=== PATIENT | female | born 1935 | race Caucasian/White ===

== ENCOUNTER 2018-04-09 10:58 | Inpatient (IN) | payer OTHER, BC ==
[2018-04-09] VITALS (9 sets, daily range): BP systolic 98–176; BP diastolic 28–72
[~2018-04-09] VITALS: Ht 170.2 cm; Wt 38.1 kg
--- NOTE | ~2018-04-09 | EKG ---
[address] [place] [address] ELECTROCARDIOGRAM REPORT Name: MEGHAN GOVEA Room #: 170-1 ADM IN M.R.#: [id number] Admission: 04/09/18 Attend Phys: Roxana Andrade Discharge: Date of : 31 Report #: [id number] THIS REPORT FOR: //name// [facility] ED Test Date: 2018-04-09 Test Time: 12:09:55 Pat Name: MEGHAN GOVEA Department: Room: 170 Gender: F [employer] Developer: MZOOK : 1935 Requested By: Josselyn Quiroz Order Number: [id number] MD: Naveen Keenan Measurements Intervals [place] Rate: 60 P: 83 [place]: 166 QRS: 65 QRSD: 88 T: 77 QT: 439 QTc: 439 Interpretive Statements Sinus rhythm Normal tracing No previous ECG available for comparison Electronically Signed On 04-09-2018 13:14:14 CDT by Naveen Keenan [email or web address] <ELECTRONICALLY SIGNED> By: Naveen Keenan MD, [facility] 04/09/18 1314 1209 1209 Naveen Keenan MD, FACC /EPI
--- NOTE | ~2018-04-09 | P ---
[facility] [address] PROCEDURE REPORT Name: MEGHAN GOVEA Room #: 423-1 ADM IN M.R.#: [id number] Admission: 04/09/18 Attend Phys: Roxana Andrade Discharge: Date of : 31 Report #: [id number] THIS REPORT FOR: //name// CC: ARNOLDO Andrade MD Physician staff DATE OF SERVICE: 04/10/2018 PROCEDURE PERFORMED: Upper endoscopy. HISTORY OF PRESENT ILLNESS: The patient is an 82-year-old female who presented with a dark stool mixed with bright red blood. She is on aspirin and Plavix. Admit hemoglobin 6. She has been transfused with 2 units of packed cells. Her hemoglobin now in the 9 range. We had a long discussion regarding observing with PPI therapy versus upper endoscopy. 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 Plan is for upper endoscopy. DESCRIPTION OF PROCEDURE: The risks and benefits of the procedure were explained to the patient and those risks including but not limited to bleeding, perforation and the risk of sedation. She understood these risks and gave informed consent. Sedation was given using propofol per anesthesia. Next, using a standard Olympus upper endoscope, the scope was placed in the patient's mouth and advanced under direct vision through the esophagus, stomach and into the second portion of the duodenum. The larynx was normal in appearance. The esophagus was normal throughout. The GE junction was normal. Upon entering the stomach, a large hiatal hernia was noted. There was a single gastric nonbleeding AVM approximately 3-4 mm in size. I did not cauterize this as the patient has been on aspirin and Plavix recently, but again there were no signs of bleeding. There was a single clean white based ulcer in the gastric antrum. The pylorus was normal and patent. There was a moderate duodenitis in the duodenal bulb and the first and second portion of the duodenum were normal. There was no evidence of bleeding in the duodenum. The scope at this point was then withdrawn and the procedure terminated. The patient tolerated the procedure well. IMPRESSION: 1. Large hiatal hernia. 2. 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 No stigmata of bleeding at this time, unable to cauterize due to aspirin and Plavix. 3. Gastric antral ulcer. No stigmata of bleeding. 4. Duodenitis. RECOMMENDATIONS: [facility] [address] [place] [address] PROCEDURE REPORT Name: TAPANNYLAZANAMEGHAN Room #: 423-1 ADM IN M.R.#: [id number] Admission: 04/09/18 Attend Phys: Roxana Andrade Discharge: Date of : 31 Report #: [id number] 1. Continue to hold anticoagulation therapy. 2. Continue PPI therapy. 3. Continue to monitor hemoglobin closely. 4. If signs of recurrent bleeding, consider a flexible sigmoidoscopy or colonoscopy in the near future. Thank you for allowing me to participate in her care. By: 1141 0027 Pa Turk, /neelam
--- NOTE | ~2018-04-09 | HC ---
[facility] [place] [address] CONSULTATION Name: MEGHAN GOVEA Room #: 423-1 ADM IN M.R.#: [id number] Admission: 04/09/18 Attend Phys: Roxana Andrade Discharge: Date of : 31 Report #: [id number] THIS REPORT FOR: //name// CC: ARNOLDO Andrade MD Physician staff DATE OF SERVICE: 04/10/2018 HISTORY OF PRESENT ILLNESS: The patient is an 82-year-old female who is visiting from [place] at this time, began feeling weak in general as well as some shortness of breath. She does have a history of COPD, is O2 dependent, typically on 1-2 liters, was using 3 liters yesterday, [place] She then had an episode of dark stool with some bright red blood. No previous history of GI bleed. She takes aspirin and Plavix on a daily basis for a history of aortic aneurysm with a previous stent placed and this was years ago. She denies any abdominal pain. She was hospitalized in December, apparently in [place] for abdominal pain. A CT scan of the abdomen and pelvis was performed. Her daughter states that they told her it was negative. There is no obvious history of diverticulosis. The patient's last colonoscopy was greater than 20 years ago. There is no family history of colon cancer. She has not had another episode of bleeding since admission. Her hemoglobin on admission was 6.2. She received 2 units of packed cells and her hemoglobin today is 9.9. She denies any dysphagia. She denies any significant heartburn symptoms. Her weight has been stable, although she typically runs in the 80-90 range. She does report some constipation at times. She denies any significant diarrhea recently. She also has a history of chronic renal insufficiency. Her creatinine is 1.4 here. PAST MEDICAL HISTORY: COPD, O2 dependent; history of aortic aneurysm, status post stent placement, but apparently has an aneurysm in a different location; previous bowel obstruction surgery x 2, which she does not know the specifics of cataract surgery; previous appendectomy; chronic renal insufficiency. ALLERGIES: To TYLENOL, FLEXERIL, HYDROCODONE, IBUPROFEN, LEVAQUIN and PENICILLIN. REVIEW OF SYSTEMS: As per HPI. MEDICATIONS: On admission: ProAir, aspirin 325 mg a day, Plavix, Lopressor, thyroid, Mevacor, alprazolam and fluticasone inhaler. FAMILY HISTORY: Negative for colon cancer. SOCIAL HISTORY: She denies any tobacco use. She reports occasional alcohol [address] [address] CONSULTATION Name: MEGHAN GOVEA Room #: [address] [place] [address] IN M.R.#: [id number] Admission: 04/09/18 Attend Phys: Roxana Andrade Discharge: Date of : 31 Report #: [id number]. PHYSICAL EXAMINATION: VITAL SIGNS: Temperature is 98.4, pulse 82, blood pressure is 135/63 and respiratory rate is 16. GENERAL: She is alert and oriented x 3, in no acute distress. HEENT: Sclerae nonicteric. Oropharynx clear. NECK: Supple, without lymphadenopathy. CARDIOVASCULAR: Regular rate and rhythm. CHEST: With decreased breath sounds bilaterally. ABDOMEN: Soft. She is nontender and nondistended. Normoactive bowel sounds. EXTREMITIES: No cyanosis, clubbing or edema. LABORATORY DATA: Sodium 141, potassium 4.7, chloride 107, bicarbonate 28, BUN 36, creatinine 1.4 and glucose 124. AST is 24, total bilirubin 0.3, alkaline phosphatase 120, ALT is 15, total protein 5.7 and albumin 3.1. Troponin less than 0.06. Iron 28%, sat 8. INR 1.2. WBC 6.0, hemoglobin 9.9 after 2 units of packed cells and platelet count is 110. RADIOLOGICAL DATA: The patient had a CT scan of the abdomen and pelvis on admission, possible mild generalized ileus versus nonspecific gastroenteritis or possible combination of both. Trace amount of free fluid in the pelvis in Herman's pouch, marked right renal atrophy, abdominal aortic stent graft in place with a 4.2 cm abdominal aortic aneurysm. Chest x-ray, chronic appearing lung changes, no definite acute cardiopulmonary process identified. ASSESSMENT AND PLAN: Anemia, gastrointestinal bleed. I had a long discussion with the patient and her daughter today regarding her symptoms, her medications. The patient describes both dark stools as well as bright red blood. I explained this is difficult to determine if this is an upper gastrointestinal bleed versus lower gastrointestinal bleed. The patient is taking aspirin and Plavix, which obviously increases the risk for peptic ulcer disease. She may have had a lower gastrointestinal bleed such as a diverticular bleed, but she is not reporting passing large amounts of blood and clots, which is typically seen. She has not had another bowel movement today. I explained to the patient we could simply observe at this time off her anticoagulation therapy and continue proton pump inhibitor therapy assuming this may be an ulcer bleed and continue to monitor hemoglobin and watch her clinically versus potentially proceeding with an upper endoscopy today. I explained the risks and benefits of doing the procedure, especially anesthesia in her situation with her pulmonary disease. After a long discussion, the patient would like to proceed with an upper endoscopy for further evaluation. I will make further recommendations after upper endoscopy. We did discuss possible flexible sigmoidoscopy; however, she is an unprepped patient and if upper endoscopy is negative, then likely source is a lower bleed and she is having no further bleeding at this time. [facility] [address] [place] [address] CONSULTATION Name: ANTONIO GOVEARICIA Room #: 423-1 ADM IN M.R.#: [id number] Admission: 04/09/18 Attend Phys: Roxana Andrade Discharge: Date of : 31 Report #: [id number] Thank you for allowing me to participate in her care. By: 1138 2236 Pa Turk MD /nt
[2018-04-09] MEDS ORDERED: PROAIR HFA8.5 GM INH (11:40)
[2018-04-09] MEDS ORDERED: ASPIRIN325 PO (11:41)
[2018-04-09] MEDS ORDERED: PLAVIX 75 MG TA75 M1 PO (11:41)
[2018-04-09] MEDS ORDERED: LOPRESSOR50 PO (11:42)
[2018-04-09] MEDS ORDERED: LOVASTATIN 20 M20 MG PO (11:44)
[2018-04-09] MEDS ORDERED: ARMOUR THYROID30 M1 PO (11:44)
[2018-04-09] MEDS ORDERED: ALPRAZOLAM 0.0.25 M1 PO (11:46)
[2018-04-09] MEDS ORDERED: BREO ELLIPTA 11 EACH INH (11:46)
[2018-04-09 11:53] LABS: ABSOLUTE NEUTROPHILS 7.3 thou/uL (1.4-8.2); ANION GAP 6 mmol/L (7-16); BASOPHILS 0.7 % (0.0-2.0); BUN 36 mg/dL (7-18); CALCIUM 8.6 mg/dL (8.5-10.1); CHLORIDE 107 mmol/L (98-107); CO2 28 mmol/L (21-32); CREATININE 1.4 mg/dL (0.6-1.0); GLUCOSE 124 mg/dL (74-106); LYMPHOCYTES 9.1 % (24.0-44.0); MCH 31.7 pg (26.0-34.0); MCHC 33.7 g/dL (28.0-37.0); MCV 94.2 fL (80.0-100.0); MONOCYTES 7.3 % (1.0-8.0); PLATELET COUNT 135 thou/uL (150-400); POLYS 80.9 % (36.0-66.0); POTASSIUM 4.7 mmol/L (3.5-5.1); RBC 1.95 mil/uL (4.20-5.00); RDW 15.1 % (10.5-14.5); SODIUM 141 mmol/L (136-145)
[2018-04-09 11:55] LABS: HEMATOCRIT 18.3 % (37.0-47.0); HEMOGLOBIN 6.2 gm/dL (12.0-15.0)
[2018-04-09 12:01] LABS: ALBUMIN 3.1 g/dL (3.4-5.0); SGOT 24 U/L (15-37); SGPT 15 U/L (30-65); TOTAL BILIRUBIN 0.3 mg/dL (<0.1-1.0); TOTAL PROTEIN 5.7 g/dL (6.4-8.2); TROPONIN-I <0.06 ng/mL (<0.06)
[2018-04-09 12:07] LABS: BE(vivo) 0.3 mmol/L (-2 to +3); HCO3 24.3 mmol/L (22.0-26.0); PO2 115.1 mmHg (80.0-100.0); pH 7.448 (7.360-7.450); sO2 98.4 % (92.0-98.0)
[2018-04-09 12:23] LABS: APTT 22.5 Seconds (24.5-32.8); INR 1.1; PROTIME 10.9 Seconds (9.3-11.4)
[2018-04-09 13:09] LABS: % SATURATION 8 % (20-39); IRON 28 ug/dL (50-170); TIBC 352 ug/dL (250-450)
[2018-04-10 05:09] LABS: HEMATOCRIT 28.7 % (37.0-47.0); HEMOGLOBIN 9.9 gm/dL (12.0-15.0); MCH 32.2 pg (26.0-34.0); MCHC 34.6 g/dL (28.0-37.0); RBC 3.08 mil/uL (4.20-5.00); RDW 14.2 % (10.5-14.5)
[2018-04-10 09:29] VITALS: BP 135/63
[2018-04-10 11:20] VITALS: BP 135/63
[2018-04-10 18:08] VITALS: BP 146/48
[2018-04-10 19:51] VITALS: BP 123/45
[2018-04-11 04:43] VITALS: BP 145/41
[2018-04-11 05:31] LABS: HEMATOCRIT 28.1 % (37.0-47.0); HEMOGLOBIN 9.4 gm/dL (12.0-15.0); MCH 31.7 pg (26.0-34.0); MCHC 33.6 g/dL (28.0-37.0); MCV 94.2 fL (80.0-100.0); RBC 2.98 mil/uL (4.20-5.00)
[2018-04-11 08:27] VITALS: BP 141/40
[2018-04-11] MEDS ORDERED: IPRAT-ALBUT 0.5-3 ML INH (10:30)
[2018-04-11] MEDS ORDERED: PROTONIX40 M1 PO (10:31)
[2018-04-11 13:18] VITALS: BP 141/40
[2018-04-11 13:57] VITALS: BP 141/40
[2018-04-11 16:27] VITALS: BP 141/40
== END 2018-04-11 17:38 | disposition home or self-care (01) | DRG 377 ==
LOC: ER 10:58 → 4E 12:29 → EROBS 12:29 → 4E 13:59
PROVIDERS: Hospitalist; Student in an Organized Health Care Education/Training Program
PROC: 30233N1 Transfusion of Nonautologous Red Blood Cells into Peripheral Vein, Percutaneous Approach (ICD-10-PCS; principal; 2018-04-09)
PROC: 0DJ08ZZ Inspection of Upper Intestinal Tract, Via Natural or Artificial Opening Endoscopic (ICD-10-PCS; 2018-04-10)
DX: K92.2 Gastrointestinal hemorrhage, unspecified (principal); E43 Unspecified severe protein-calorie malnutrition; Z68.1 Body mass index [BMI] 19.9 or less, adult; K44.9 Diaphragmatic hernia without obstruction or gangrene; K31.819 Angiodysplasia of stomach and duodenum without bleeding; D64.9 Anemia, unspecified; J44.9 Chronic obstructive pulmonary disease, unspecified; N18.9 Chronic kidney disease, unspecified; I71.4 Abdominal aortic aneurysm, without rupture; K25.9 Gastric ulcer, unspecified as acute or chronic, without hemorrhage or perforation; K29.80 Duodenitis without bleeding; M62.84 Sarcopenia; F41.9 Anxiety disorder, unspecified; Z88.6 Allergy status to analgesic agent; Z88.1 Allergy status to other antibiotic agents; Z88.0 Allergy status to penicillin; Z88.8 Allergy status to other drugs, medicaments and biological substances; Z98.49 Cataract extraction status, unspecified eye; Z90.49 Acquired absence of other specified parts of digestive tract; Z79.899 Other long term (current) drug therapy
CPT/HCPCS: 10183; 62110; 62900; 70005